=== PATIENT | male | born 2000 | race Asian ===

== ENCOUNTER 2019-01-03 16:44 | Inpatient (IN) | payer BC ==
[~2019-01-03] VITALS: Ht 167.6 cm; Wt 59.4 kg
[2019-01-03] MEDS ORDERED: ISOT10CA PO (17:04)
[2019-01-03 17:24] LABS: BASOPHILS % (AUTO) 0.9 % (0.0-2.0); EOSINOPHILS % (AUTO) 1.8 % (1.0-6.0); HEMATOCRIT 46.3 % (41-53); HEMOGLOBIN 16.2 g/dL (13.5-17.5); LYMPHOCYTES # (AUTO) 1.6 K/uL (1.0-4.8); LYMPHOCYTES % (AUTO) 24.5 % (22.0-44.0); MEAN CORPUSCULAR HGB CONC 35.1 G/dL (31.0-37.0); MEAN CORPUSCULAR VOLUME 88 fL (80-100); MONOCYTES # (AUTO) 0.5 K/uL (0.1-1.0); MONOCYTES % (AUTO) 7.6 % (2.0-9.0); NEUTROPHILS # (AUTO) 4.2 K/uL (1.8-7.7); NEUTROPHILS % (AUTO) 65.2 % (40.0-70.0); PLATELET COUNT (AUTO) 236 K/uL (150-450); RED BLOOD CELL COUNT(AUTO) 5.24 MIL/uL (4.50-5.90); RED CELL DISTRIBUTION WIDTH 12.8 % (11.5-14.5)
[2019-01-03 17:36] LABS: ANION GAP 5 mmol/L (8-16); CALCIUM, TOTAL 8.9 mg/dL (8.8-10.5); CARBON DIOXIDE 31 mmol/L (22-29); CHLORIDE 103 mmol/L (98-107); CREATININE 0.91 mg/dL (0.60-1.30); GLOMERULAR FILTR. RATE CALC > 60 mL/min (>60); GLUCOSE,RANDOM 87 mg/dL (70-110); POTASSIUM 3.6 mmol/L (3.5-5.1); SODIUM SERUM 139 mmol/L (136-145); UREA NITROGEN, BLOOD 19 mg/dL (7-18)
[2019-01-03 17:42] LABS: ALANINE AMINOTRANSFERASE 19 U/L (12-78); ALBUMIN 3.9 g/dL (3.4-5.0); ALKALINE PHOSPHATASE 77 U/L (46-116); ASPARTATE AMINOTRANSFERASE 16 U/L (15-37); BILIRUBIN,TOTAL 0.5 mg/dL (0.1-1.0); TOTAL PROTEIN, SERUM 7.2 g/dL (6.4-8.2)
[2019-01-03] MEDS ORDERED: LORazepam 2 MG TABLET PO PRN (18:15)
[2019-01-03] MEDS ORDERED: HALOPERIDOL 5 MG TABLET PO PRN (18:15)
[2019-01-04] MEDS: ZOLPIDEM TARTRATE 10 MG TABLET PO PRN ×2 (00:57→22:33)
[2019-01-04 01:00] VITALS: BP 131/79
[2019-01-04] MEDS ORDERED: PNEUMOCOCCAL VACCINE POLYVALENT 0.5 ML VIAL [PPSV23] IM ONE (03:15)
[2019-01-04 08:02] LABS: CHOL/HDL RATIO 3.9 (4.2-7.3)
[2019-01-04 08:04] VITALS: BP 117/66
[2019-01-04 16:31] VITALS: BP 121/70
[2019-01-04] MEDS: ESCITALOPRAM OXALATE 10 MG TABLET PO SCH (16:44)
[2019-01-05 07:11] VITALS: BP 118/62
[2019-01-05 08:28] LABS: HEMOGLOBIN A1C 5.2 % (4.5-6.2)
[2019-01-05] MEDS: ESCITALOPRAM OXALATE 10 MG TABLET PO SCH (08:42)
[2019-01-05 08:44] LABS: FREE T4 (FREE THYROXINE) 0.74 ng/dL (0.76-1.46); THYROID STIMULATING HORMONE 1.43 uIU/mL (0.36-3.74)
[2019-01-05] MEDS ORDERED: ESCI10TA PO (11:32)
== END 2019-01-05 12:15 | disposition home or self-care (01) | DRG 885 ==
LOC: EMS 16:45 → B2S 19:00
DX: F33.2 Major depressive disorder, recurrent severe without psychotic features (principal); R45.851 Suicidal ideations; F84.5 Asperger's syndrome; R03.0 Elevated blood-pressure reading, without diagnosis of hypertension; R79.89 Other specified abnormal findings of blood chemistry; L70.0 Acne vulgaris; Z79.899 Other long term (current) drug therapy
CPT/HCPCS: 83036; 84439; 84443; G0480